=== PATIENT | male | born 1955 | race Caucasian/White ===

== ENCOUNTER → 2016-12-19 | Outpatient (CLI) | payer OTHER, MEDICAID ==
--- NOTE | 2016-12-23 09:09 | MRI ---
Right shoulder MRI without contrast Indication: Right shoulder pain following trauma Technique: Multi sequence, multiplanar MR images of the right shoulder were obtained without contras t. Comparison: None Findings: Apart from subinsertional cysts at the rotator cuff footplate, marrow signal appears shakir l. No acute fracture, malalignment or suspicious osseous lesion is seen. There is a complete, full-thickness tear of the supraspinatus tendon at the footplate with central r etraction to the level of the AC joint. The tear propagates posteriorly to involve the infraspinatus tendon, which also demonstrates a full-thickness tear of its anterior and mid fibers at the footpla te with a few posterior fibers remaining. There is moderate tendinosis of the cranial subscapularis tendon without discrete tear identified. The teres minor tendon appears intact. There is mild fatty atrophy of the supraspinatus, infraspinatus and subscapularis muscle bellies. Mild intramuscular tressa ma of the supraspinatus is also seen. There is mild degenerative arthrosis of the AC joint. The type 2 acromion demonstrates no a signific ant anterior or lateral downsloping. Trace fluid is present within the subdeltoid bursa, likely rela cordell to full-thickness cuff tears. There is moderate degenerative arthrosis and chondromalacia of the glenohumeral joint with a moderate associated effusion. The long head biceps tendon is not visualized and is likely torn. There is also diffuse blunting and intermediate signal throughout the labrum, greatest within the anterior superior and anterior infer ior labrum, compatible with tears. Impression: 1. Complete, full-thickness tear of the supraspinatus tendon at the footplate with central retractio n to the level of the AC joint. There is mild associated atrophy of the supraspinatus. 2. Full thickness, near complete tear of the distal infraspinatus tendon with a few posterior fibers remaining. There is mild associated atrophy as well as edema of the infraspinatus. 3. Moderate tendinosis of the subscapularis tendon without discrete tear. 4. Nonvisualization of the long head biceps tendon, compatible with tear. 5. 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 Moderate sized glenohumeral joint effusion, likely r eactive. 6. Diffuse blunting of the glenoid labrum, compatible with degenerative tears. Reported By:
== END ==
LOC: RAD 09:15
PROVIDERS: ATTEND Specialist
DX: S46.011S Strain of muscle(s) and tendon(s) of the rotator cuff of right shoulder, sequela (principal); X58.XXXS Exposure to other specified factors, sequela
CPT/HCPCS: 73221